=== PATIENT | male | born 1965 | race Two or more races ===

== ENCOUNTER 2021-08-27 08:38 | Emergency (ER) | payer OTHER ==
[~2021-08-27] VITALS: Ht 177.8 cm; Wt 74.8 kg
[2021-08-27] MEDS ORDERED: NOREPINEPHRINE 8 MG/250ML KIT 250 ML IV ONE (08:50)
[2021-08-27] MEDS ORDERED: ETOMIDATE (2MG/ML) 20ML VIAL IV ONE ×2 (08:57→09:00)
[2021-08-27] MEDS ORDERED: SUCCINYLCHOLINE CHLORIDE 20 MG/ML 10ML VIAL IV ONE ×2 (08:58→09:00)
[2021-08-27] MEDS ORDERED: MIDAZOLAM DRIP 50 mg/50mL 50 ML IV ONE (08:59)
[2021-08-27] MEDS ORDERED: MIDAZOLAM DRIP 50 mg/50mL 50 ML IV SCH ×2 (09:00→09:45)
[2021-08-27] MEDS ORDERED: NOREPINEPHRINE 8 MG/250ML KIT 250 ML IV SCH (09:00)
[2021-08-27 09:32] LABS: Albumin 2.5 g/dL (3.4-5.0); Calcium 7.1 mg/dL (8.5-10.1); Potassium 4.5 mmol/L (3.5-5.1)
[2021-08-27 09:38] LABS: BUN/Creatinine Ratio 37.3; Bilirubin, Total 1.3 mg/dL (0.2-1.0); Total Protein 4.8 g/dL (6.4-8.2)
[2021-08-27 09:46] LABS: Hematocrit 5.9 % (41.0-53.0)
[2021-08-27 09:49] LABS: Mean Corpuscular Hemoglobin 39.5 pg (28.0-32.0); Mean Corpuscular Hgb Conc. 33.8 g/dL (32.0-36.0); Mean Corpuscular Volume 116.9 fL (80.0-100.0); Red Cell Distribution Width 14.1 % (11.8-14.3)
[2021-08-27] MEDS ORDERED: PROPOFOL 100 ML IV ONE (09:57)
[2021-08-27 09:58] LABS: White Blood Cell 1.9 10^3/uL (4.4-10.8)
[2021-08-27 09:59] LABS: Band Neutrophils % (manual) 0; Basophils % (manual) 0 (0.0-2.0); Eosinophils % (manual) 0 (0-7); Metamyelocytes % 0; Myelocytes % 0; Promyelocytes % 0; Reactive Lymphocytes 0
[2021-08-27] MEDS ORDERED: PROPOFOL 100 ML IV SCH (10:00)
[2021-08-27 10:52] LABS: Amphetamine Screen, Urine NEGATIVE (NEGATIVE); Barbiturate Scree,Urine NEGATIVE (NEGATIVE); Benzodiazephine Screen, Urine NEGATIVE (NEGATIVE); Cannabinoid Screen, Urine NEGATIVE (NEGATIVE); Cocaine Screen, Urine NEGATIVE (NEGATIVE); Opiate Scree,Urine NEGATIVE (NEGATIVE); Phencyclidine Screen, Urine NEGATIVE (NEGATIVE)
[2021-08-27 11:28] VITALS: BP 108/55
[2021-08-27 11:45] VITALS: BP 112/52
[2021-08-27 12:00] VITALS: BP 103/49
[2021-08-27 12:15] LABS: Urine Bacteria FEW /hpf (None Seen); Urine Blood 1+ /uL (Negative); Urine Hyaline Cast MOD /lpf (0 - 2); Urine Specific Gravity 1.012 (1.001-1.035); Urine WBC 59 /hpf (0 - 3); Urine WBC Clumps PRESENT /hpf (None Seen)
[2021-08-27 12:33] LABS: Blast Cells 1; Lymphocytes % (manual) 74 (10.0-50.0); Monocytes % (manual) 3 (0-12)
[2021-08-27 15:19] VITALS: BP 120/75
== END 2021-08-27 15:57 | disposition short-term general hospital (02) ==
LOC: ER 08:38 → EDBD 08:38 → ER 15:57
DX: G93.41 Metabolic encephalopathy (principal); D64.9 Anemia, unspecified; E13.10 Other specified diabetes mellitus with ketoacidosis without coma; Z20.822 Contact with and (suspected) exposure to COVID-19
CPT/HCPCS: 31500; 36415; 36430; 36556; 36600; 70450; 71045; 71250; 74176; 80053; 80307; 81001; 82140; 82805; 83605; 84484; 85007; 85027; 86850; 86900; 86901; 86920; 87040; 87070; 87077; 87186; 87205; 87426; 93005; 99291; C9803; J0330; J2250; J2704; J7040; P9016; U0003; 94002